=== PATIENT | female | born 1950 | race Caucasian/White ===

== ENCOUNTER 2017-02-06 08:18 | Day surgery (SDC) | payer BC ==
[~2017-02-06] VITALS: Ht 162.6 cm; Wt 79.4 kg
[~2017-02-06 08:18] MED LIST: BAYER ASPIRIN E81 MG PO; CELEBREX200 M1 PO; CIPRO500 MG PO; CRANBERRY500 MG PO; DILT-XR180 MG PO; FOSAMAX5 MG PO; LIPITOR10 M1 PO; MULTI VIT PO; PRILOSEC10 MG PO; PYRIDIUM200 MG PO; TRIAMCINOLON0.11 EX
[2017-02-06 10:04] VITALS: BP 140/64
== END 2017-02-06 10:12 | disposition home or self-care (01) | DRG 392 ==
LOC: ENDO 08:18 → ORM 12:30 → ENDO 12:30 → ORM 16:15
PROVIDERS: ATTEND Internal Medicine Gastroenterology
PROC: 0DB48ZX Excision of Esophagogastric Junction, Via Natural or Artificial Opening Endoscopic, Diagnostic (ICD-10-PCS; principal; 2017-02-06)
PROC: 0DB28ZX Excision of Middle Esophagus, Via Natural or Artificial Opening Endoscopic, Diagnostic (ICD-10-PCS; 2017-02-06)
DX: K21.9 Gastro-esophageal reflux disease without esophagitis (principal); I10 Essential (primary) hypertension; R07.89 Other chest pain; K59.00 Constipation, unspecified; K22.70 Barrett's esophagus without dysplasia; K29.70 Gastritis, unspecified, without bleeding; K44.9 Diaphragmatic hernia without obstruction or gangrene; Z87.11 Personal history of peptic ulcer disease; Z86.010 Personal history of colon polyps

== ENCOUNTER 2017-04-03 16:29 | Emergency (ER) | payer BC ==
[~2017-04-03] VITALS: Ht 162.6 cm; Wt 79.0 kg
[2017-04-03] MEDS ORDERED: CARTIA XT180 MG PO (16:44)
[2017-04-03] MEDS ORDERED: CEPHALEXIN500 MG PO (18:11)
[2017-04-03] MEDS ORDERED: MEDDOSEPAK PO (18:11)
[2017-04-03 18:20] VITALS: BP 144/74
== END 2017-04-03 18:20 | disposition home or self-care (01) | DRG 607 ==
LOC: ED 16:29
DX: L50.0 Allergic urticaria (principal); T37.0X5A Adverse effect of sulfonamides, initial encounter; T39.8X5A Adverse effect of other nonopioid analgesics and antipyretics, not elsewhere classified, initial encounter; Y92.009 Unspecified place in unspecified non-institutional (private) residence as the place of occurrence of the external cause

== ENCOUNTER 2017-12-23 06:53 | Day surgery (SDC) | payer MEDICARE, BC ==
[~2017-12-23] VITALS: Ht 162.6 cm; Wt 78.5 kg
[~2017-12-23 06:53] MED LIST changes: +CARTIA XT180 MG PO; +CEPHALEXIN500 MG PO; +MEDDOSEPAK PO; +RANITIDINE150 MG PO; +SPIRIVA RE2.5 MCG/AC
[2017-12-23] MEDS ORDERED: PERCOCET 5/325M1 TAB PO (10:53)
[2017-12-23] MEDS ORDERED: MOTRIN800 MG PO (10:53)
[2017-12-23 12:32] VITALS: BP 110/56
== END 2017-12-23 12:13 | disposition home or self-care (01) ==
LOC: ORM 06:53
PROVIDERS: ATTEND Surgery
PROC: 0FT44ZZ Resection of Gallbladder, Percutaneous Endoscopic Approach (ICD-10-PCS; principal; 2017-12-23)
DX: K80.10 Calculus of gallbladder with chronic cholecystitis without obstruction (principal); I10 Essential (primary) hypertension; J44.9 Chronic obstructive pulmonary disease, unspecified
CPT/HCPCS: J2710

== ENCOUNTER 2018-02-26 06:33 | Day surgery (SDC) | payer MEDICARE, BC ==
[~2018-02-26] VITALS: Ht 162.6 cm; Wt 78.5 kg
[~2018-02-26 06:33] MED LIST changes: +ACETAMIN500 M2 PO; +CARAFATE PO; +MOTRIN800 MG PO; +PERCOCET 5/325M1 TAB PO; +SPIRIVA RE2.5 MCG/AC IN; +VITAMIN B PO
[2018-02-26] MEDS ORDERED: PROTONIX40 M2 PO (10:30)
[2018-02-26 10:46] VITALS: BP 130/76
== END 2018-02-26 11:01 | disposition home or self-care (01) ==
LOC: ENDO 06:33 → ORM 18:30 → ENDO 18:30
PROVIDERS: ATTEND Internal Medicine Gastroenterology
PROC: 0DB58ZX Excision of Esophagus, Via Natural or Artificial Opening Endoscopic, Diagnostic (ICD-10-PCS; principal; 2018-02-26)
PROC: 0W3P8ZZ Control Bleeding in Gastrointestinal Tract, Via Natural or Artificial Opening Endoscopic (ICD-10-PCS; 2018-02-26)
PROC: 0DBK8ZX Excision of Ascending Colon, Via Natural or Artificial Opening Endoscopic, Diagnostic (ICD-10-PCS; 2018-02-26)
PROC: 0DBH8ZX Excision of Cecum, Via Natural or Artificial Opening Endoscopic, Diagnostic (ICD-10-PCS; 2018-02-26)
PROC: 3E0H8GC Introduction of Other Therapeutic Substance into Lower GI, Via Natural or Artificial Opening Endoscopic (ICD-10-PCS; 2018-02-26)
DX: K21.0 Gastro-esophageal reflux disease with esophagitis (principal); K29.71 Gastritis, unspecified, with bleeding; K31.82 Dieulafoy lesion (hemorrhagic) of stomach and duodenum; K22.70 Barrett's esophagus without dysplasia; Z12.11 Encounter for screening for malignant neoplasm of colon; D12.0 Benign neoplasm of cecum; D12.2 Benign neoplasm of ascending colon; K64.4 Residual hemorrhoidal skin tags; K57.30 Diverticulosis of large intestine without perforation or abscess without bleeding; K64.8 Other hemorrhoids; I10 Essential (primary) hypertension; Z79.899 Other long term (current) drug therapy; Z86.010 Personal history of colon polyps

== ENCOUNTER 2018-03-26 14:19 | Emergency (ER) | payer MEDICARE, BC ==
[~2018-03-26] VITALS: Ht 162.6 cm; Wt 77.3 kg
[~2018-03-26 14:19] MED LIST changes: +PROTONIX40 M2 PO
[2018-03-26 15:51] LABS: IMMATURE GRANULOCYTES 1.1 % (0.0-5.0); MEAN CELL VOLUME 96.3 fL CALC (80.0-100.0); MEAN CORPUSCULAR HGB 30.1 pG CALC (26.0-32.0); MEAN CORPUSCULAR HGB CONC 31.2 g/L CALC (32.0-36.0); NEUT# 9.47 thou/uL (2.00-7.15); RED BLOOD COUNT 2.96 mill/uL (4.20-5.60)
[2018-03-26 15:55] LABS: ALKALINE PHOSPHATASE 86 u/l (38-126); ANION GAP 12 (6-22 (CALC)); BILIRUBIN, TOTAL 0.5 mg/dL (0.0-1.4); BUN 11 mg/dL (8-23); BUN/CREATININE RATIO 19 (12-20 (CALC)); CARBON DIOXIDE 26 mmol/l (22-30); CHLORIDE 107 mmol/l (95-108); CREATININE 0.6 mg/dL (0.5-1.0); GFR > 60 ML/MIN (>=60 (CALC)); GFR FOR AFR.AMER. > 60 ML/MIN (>=60 (CALC)); POTASSIUM 3.8 mmol/l (3.5-5.1); SGOT/AST 22 u/l (9-36); SGPT/ALT 38 u/l (11-66); SODIUM 141 mmol/l (137-146)
[2018-03-26 16:00] LABS: ALBUMIN 3.3 g/dL (3.2-5.0)
[2018-03-26 16:01] LABS: HEMATOCRIT 28.5 % (37.0-47.0); HEMOGLOBIN 8.9 g/dl (12.0-16.0)
[2018-03-26] MEDS ORDERED: CIPROFLOXACN500 MG PO (18:20)
[2018-03-26] MEDS ORDERED: CEPHALEXIN500 M1 PO (18:20)
[2018-03-26 18:36] VITALS: BP 123/59
== END 2018-03-26 18:47 | disposition home or self-care (01) ==
LOC: ED 14:19
PROVIDERS: Emergency Medicine
DX: T81.4XXA Infection following a procedure, initial encounter (principal); I10 Essential (primary) hypertension; J44.9 Chronic obstructive pulmonary disease, unspecified; F17.210 Nicotine dependence, cigarettes, uncomplicated; B96.1 Klebsiella pneumoniae [K. pneumoniae] as the cause of diseases classified elsewhere; Y83.6 Removal of other organ (partial) (total) as the cause of abnormal reaction of the patient, or of later complication, without mention of misadventure at the time of the procedure; Z87.442 Personal history of urinary calculi
CPT/HCPCS: Q9967

== ENCOUNTER → 2018-10-22 | Outpatient (REF) | payer MEDICARE, BC ==
[~2018-10-22] MED LIST changes: +CEPHALEXIN500 M1 PO; +CIPROFLOXACN500 MG PO
[2018-10-22 09:58] LABS: HEMOGLOBIN 13.2 g/dl (12.0-16.0); IMMATURE GRANULOCYTES 0.4 % (0.0-5.0); MEAN CELL VOLUME 87.9 fL CALC (80.0-100.0); MEAN CORPUSCULAR HGB CONC 30.7 g/L CALC (32.0-36.0); NEUT# 4.78 thou/uL (2.00-7.15); RED BLOOD COUNT 4.89 mill/uL (4.20-5.60); RED CELL DISTRI WIDTH 14.3 % (11.5-15.5)
[2018-10-22 10:42] LABS: C-REACTIVE PROTEIN 1.9 mg/dL (0-0.9)
[2018-10-22 11:10] LABS: TSH, 3RD GENERATION 2.07 uIU/mL (0.47 - 4.68)
== END | disposition home or self-care (01) ==
LOC: LAB 09:15
PROVIDERS: ATTEND Internal Medicine Rheumatology
DX: M25.50 Pain in unspecified joint (principal); M79.10 Myalgia, unspecified site

== ENCOUNTER 2019-03-09 08:08 | Observation (INO) | payer MEDICARE, BC ==
[~2019-03-09] VITALS: Ht 162.6 cm; Wt 84.0 kg
[2019-03-09 08:45] LABS: HEMOGLOBIN 12.3 g/dl (12.0-16.0); IMMATURE GRANULOCYTES 0.8 % (0.0-5.0); MEAN CELL VOLUME 90.1 fL CALC (80.0-100.0); MEAN CORPUSCULAR HGB 27.7 pG CALC (26.0-32.0); MEAN CORPUSCULAR HGB CONC 30.8 g/L CALC (32.0-36.0); NEUT# 19.41 thou/uL (2.00-7.15); RED BLOOD COUNT 4.44 mill/uL (4.20-5.60); RED CELL DISTRI WIDTH 14.4 % (11.5-15.5)
[2019-03-09] MEDS ORDERED: ATORVASTATIN CA10 MG PO (08:59)
[2019-03-09] MEDS ORDERED: NEURONTIN300 MG PO (09:00)
[2019-03-09] MEDS ORDERED: GABAPENTIN100 MG PO (09:00)
[2019-03-09 09:04] LABS: ALBUMIN 4.1 g/dL (3.2-5.0); ALKALINE PHOSPHATASE 145 u/l (38-126); BILIRUBIN, TOTAL 0.2 mg/dL (0.0-1.4); BUN 20 mg/dL (8-23); BUN/CREATININE RATIO 31 (12-20 (CALC)); CHLORIDE 108 mmol/l (95-108); CREATININE 0.6 mg/dL (0.5-1.0); GFR > 60 ML/MIN (>=60 (CALC)); GFR FOR AFR.AMER. > 60 ML/MIN (>=60 (CALC)); POTASSIUM 3.9 mmol/l (3.5-5.1); SGOT/AST 26 u/l (9-36); SODIUM 141 mmol/l (137-146)
[2019-03-09 09:05] LABS: ANION GAP 16 (6-22 (CALC)); CARBON DIOXIDE 21 mmol/l (22-30)
[2019-03-09 11:08] LABS: URINE BILIRUBIN - DIPSTICK NEGATIVE (NEGATIVE); URINE BLOOD DIPSTICK NEGATIVE (NEGATIVE); URINE COLOR YELLOW; URINE GLUCOSE - DIPSTICK NEGATIVE (NEGATIVE); URINE KETONE NEGATIVE (NEGATIVE); URINE LEUK ESTERASE NEGATIVE (NEGATIVE); URINE NITRITE - DIPSTICK NEGATIVE (Negative); URINE PH 6.5 (4.5-8.0); URINE PROTEIN - DIPSTICK NEGATIVE (NEG-TRACE); URINE SPECIFIC GRAVITY <=1.005; URINE UROBILINOGEN - DIPSTICK 0.2 E.U./dL (0.2)
[2019-03-09 13:13] VITALS: BP 135/66
[2019-03-09 17:30] VITALS: BP 120/52
[2019-03-09 17:50] VITALS: BP 147/66
[2019-03-09 19:40] VITALS: BP 106/60
[2019-03-10 04:24] VITALS: BP 129/58
[2019-03-10 05:16] LABS: HEMATOCRIT 40.2 % (37.0-47.0); HEMOGLOBIN 12.2 g/dl (12.0-16.0); IMMATURE GRANULOCYTES 0.6 % (0.0-5.0); MEAN CELL VOLUME 91.8 fL CALC (80.0-100.0); MEAN CORPUSCULAR HGB 27.9 pG CALC (26.0-32.0); MEAN CORPUSCULAR HGB CONC 30.3 g/L CALC (32.0-36.0); NEUT# 10.61 thou/uL (2.00-7.15); RED BLOOD COUNT 4.38 mill/uL (4.20-5.60); RED CELL DISTRI WIDTH 14.7 % (11.5-15.5)
[2019-03-10 05:41] LABS: ALBUMIN 3.5 g/dL (3.2-5.0); ALKALINE PHOSPHATASE 111 u/l (38-126); AMYLASE 39 u/l (30-110); BILIRUBIN, TOTAL 0.2 mg/dL (0.0-1.4); BUN 17 mg/dL (8-23); BUN/CREATININE RATIO 20 (12-20 (CALC)); CHLORIDE 109 mmol/l (95-108); CREATININE 0.8 mg/dL (0.5-1.0); GFR > 60 ML/MIN (>=60 (CALC)); GFR FOR AFR.AMER. > 60 ML/MIN (>=60 (CALC)); LIPASE 51 u/l (23-300); POTASSIUM 4.6 mmol/l (3.5-5.1); SGOT/AST 33 u/l (9-36); SODIUM 144 mmol/l (137-146)
[2019-03-10 05:43] LABS: ANION GAP 12 (6-22 (CALC)); CARBON DIOXIDE 28 mmol/l (22-30)
[2019-03-10 08:20] VITALS: BP 133/63
[2019-03-10 08:25] VITALS: BP 133/63
== END 2019-03-10 14:10 | disposition home or self-care (01) ==
LOC: ED 08:08 → ED-I 11:40 → ED 12:16 → MS2 12:17
PROVIDERS: Emergency Medicine; ADMIT Internal Medicine Nephrology; ATTEND Internal Medicine Nephrology
DX: R07.89 Other chest pain (principal); R06.02 Shortness of breath; K21.9 Gastro-esophageal reflux disease without esophagitis; I10 Essential (primary) hypertension; J44.9 Chronic obstructive pulmonary disease, unspecified; N20.0 Calculus of kidney; M19.90 Unspecified osteoarthritis, unspecified site; E78.5 Hyperlipidemia, unspecified; M54.9 Dorsalgia, unspecified; G89.29 Other chronic pain; Z79.899 Other long term (current) drug therapy
CPT/HCPCS: J1650; Q9967

== ENCOUNTER 2019-04-20 08:34 | Day surgery (SDC) | payer MEDICARE, BC ==
[~2019-04-20 08:34] MED LIST changes: +ATORVASTATIN CA10 MG PO; +GABAPENTIN100 MG PO; +NEURONTIN300 MG PO; +OMEPRAZOLE20 M1 PO; +PROAIR HFA108 MCG/AC PO; +TIZANIDINE2 MG PO
[2019-04-20 11:30] VITALS: BP 164/71
== END 2019-04-20 11:44 | disposition home or self-care (01) ==
LOC: ENDO 08:34
PROVIDERS: ATTEND Surgery
PROC: 0DJD8ZZ Inspection of Lower Intestinal Tract, Via Natural or Artificial Opening Endoscopic (ICD-10-PCS; principal; 2019-04-20)
PROC: 0DB78ZX Excision of Stomach, Pylorus, Via Natural or Artificial Opening Endoscopic, Diagnostic (ICD-10-PCS; 2019-04-20)
DX: Z12.11 Encounter for screening for malignant neoplasm of colon (principal); K29.70 Gastritis, unspecified, without bleeding; K31.9 Disease of stomach and duodenum, unspecified; Z85.038 Personal history of other malignant neoplasm of large intestine; Z90.49 Acquired absence of other specified parts of digestive tract
CPT/HCPCS: 43239; G0105

== ENCOUNTER 2021-05-14 12:50 | Outpatient (REF) | payer MEDICARE, BC ==
[2021-05-14 13:26] LABS: HEMATOCRIT 45.7 % (37.0-47.0); MEAN CORPUSCULAR HGB 27.9 pG CALC (26.0-32.0); MEAN CORPUSCULAR HGB CONC 30.6 g/dL CAL (32.0-36.0); RED BLOOD COUNT 5.02 mill/uL (4.20-5.60)
[2021-05-14 13:33] LABS: ALBUMIN 3.6 g/dL (3.2-5.0); ALKALINE PHOSPHATASE 152 u/l (38-126); ANION GAP 12 (6-22 (CALC)); BILIRUBIN, TOTAL 0.3 mg/dL (0.0-1.4); BUN 18 mg/dL (8-23); BUN/CREATININE RATIO 24 (12-20 (CALC)); CALCULATED LDLCHOLESTEROL 102 mg/dL (62-129 (CALC)); CARBON DIOXIDE 29 mmol/l (22-30); CHLORIDE 105 mmol/l (95-108); CHOLESTEROL HDL RATIO 3.2 (<4.4 (CALC)); CREATININE 0.8 mg/dL (0.5-1.0); GFR > 60 ML/MIN (>=60 (CALC)); GFR FOR AFR.AMER. > 60 ML/MIN (>=60 (CALC)); HDL CHOLESTEROL 59 mg/dL (>=40); POTASSIUM 4.4 mmol/l (3.5-5.1); SGOT/AST 34 u/l (9-36); SODIUM 141 mmol/l (137-146); TOTAL CHOLESTEROL 188 mg/dl (0-199); TOTAL PROTEIN 6.5 g/dL (6.3-8.2); TOTAL TRIGLYCERIDES 135 mg/dl (30-149); VLDL CHOLESTROL 27 mg/dl (1-41 (CALC))
== END 2021-05-14 13:27 | disposition home or self-care (01) ==
LOC: INF 12:50
PROVIDERS: ATTEND Internal Medicine
DX: M81.0 Age-related osteoporosis without current pathological fracture (principal); G60.9 Hereditary and idiopathic neuropathy, unspecified; I10 Essential (primary) hypertension; M32.9 Systemic lupus erythematosus, unspecified; R41.3 Other amnesia
CPT/HCPCS: J0897

== ENCOUNTER 2021-06-21 10:25 | Emergency (ER) | payer MEDICARE, BC ==
[~2021-06-21] VITALS: Ht 162.6 cm; Wt 90.0 kg
[2021-06-21 11:26] LABS: ALBUMIN 3.2 g/dL (3.2-5.0); ALKALINE PHOSPHATASE 115 u/l (38-126); BUN 19 mg/dL (8-23); BUN/CREATININE RATIO 34 (12-20 (CALC)); CARBON DIOXIDE 27 mmol/l (22-30); CHLORIDE 112 mmol/l (95-108); CREATININE 0.5 mg/dL (0.5-1.0); GFR > 60 ML/MIN (>=60 (CALC)); GFR FOR AFR.AMER. > 60 ML/MIN (>=60 (CALC)); SGOT/AST 52 u/l (9-36); SODIUM 145 mmol/l (137-146); TOTAL PROTEIN 6.3 g/dL (6.3-8.2)
[2021-06-21 11:26] LABS: URINE BILIRUBIN - DIPSTICK NEGATIVE (NEGATIVE); URINE BLOOD DIPSTICK NEGATIVE (NEGATIVE); URINE COLOR YELLOW; URINE GLUCOSE - DIPSTICK NEGATIVE (NEGATIVE); URINE KETONE NEGATIVE (NEGATIVE); URINE LEUK ESTERASE TRACE (NEGATIVE); URINE PROTEIN - DIPSTICK NEGATIVE (NEG-TRACE); URINE SPECIFIC GRAVITY 1.025; URINE UROBILINOGEN - DIPSTICK 0.2 E.U./dL (0.2)
[2021-06-21 11:28] LABS: ANION GAP 9 (6-22 (CALC)); BILIRUBIN, TOTAL 0.7 mg/dL (0.0-1.4); POTASSIUM 3.2 mmol/l (3.5-5.1)
[2021-06-21 11:29] LABS: URINE NITRITE - DIPSTICK NEGATIVE (Negative)
[2021-06-21 11:40] LABS: HEMATOCRIT 43.4 % (37.0-47.0); HEMOGLOBIN 13.1 g/dl (12.0-16.0); IMMATURE GRANULOCYTES 1.4 % (0.0-5.0); MEAN CELL VOLUME 91.6 fL CALC (80.0-100.0); MEAN CORPUSCULAR HGB 27.6 pG CALC (26.0-32.0); MEAN CORPUSCULAR HGB CONC 30.2 g/dL CAL (32.0-36.0); NEUT# 2.29 thou/uL (2.00-7.15); RED BLOOD COUNT 4.74 mill/uL (4.20-5.60); RED CELL DISTRI WIDTH 16.4 % (11.5-15.5)
[2021-06-21 11:40] LABS: URINE BACTERIA MANY hpf
[2021-06-21 11:41] LABS: URINE SQUAMOUS EPITHELIAL CELL MODERATE EPI/hpf (0-FEW); URINE WBC 20-50 WBC/hpf (0-5); URINE YEAST MODERATE hpf
[2021-06-21 14:45] VITALS: BP 137/76
== END 2021-06-21 14:15 | disposition short-term general hospital (02) ==
LOC: ED 10:25
PROVIDERS: Family Medicine
DX: C71.9 Malignant neoplasm of brain, unspecified (principal); G40.009 Localization-related (focal) (partial) idiopathic epilepsy and epileptic syndromes with seizures of localized onset, not intractable, without status epilepticus; I10 Essential (primary) hypertension; G20 Parkinson's disease; G81.94 Hemiplegia, unspecified affecting left nondominant side

== ENCOUNTER 2021-07-14 19:38 | Emergency (ER) | payer MEDICARE, BC ==
[~2021-07-14] VITALS: Ht 162.6 cm; Wt 109.0 kg
[~2021-07-14 19:38] MED LIST changes: +AMITRIPTYLINE H50 MG PO; +DECADRON4 M1 PO; +FLEXERIL5 M1 PO; +HUMALOG100 UNIT/M SC; +HYDROXYCHLOR200 M1 PO; +HYDROXYZINE HYD50 MG PO; +INDERAL10 M1 PO; +LEVETIRACETAM500 M1 PO; +METFORMIN500 M2 PO; -TIZANIDINE2 MG PO
[2021-07-14 21:46] VITALS: BP 141/75
== END 2021-07-14 21:46 ==
LOC: ED 19:38
DX: S40.012A Contusion of left shoulder, initial encounter (principal); S16.1XXA Strain of muscle, fascia and tendon at neck level, initial encounter; G81.04 Flaccid hemiplegia affecting left nondominant side; G20 Parkinson's disease; W06.XXXA Fall from bed, initial encounter; Y92.129 Unspecified place in nursing home as the place of occurrence of the external cause; Z85.841 Personal history of malignant neoplasm of brain